=== PATIENT | male | born 1995 | race Hispanic/Latino ===

== ENCOUNTER 2018-02-12 23:50 | Inpatient (IN) | payer MEDICAID, OTHER ==
[2018-02-13 00:52] LABS: BASO # 0.02 K/mm3 (0.0-2.0); BASO % 0.2 % (0.0-3.0); EOS # 0.4 (0.0-0.7); EOS % 4.7 % (1.5-5.0); GRAN # 5.6 (1.4-6.5); GRAN % 61.8 % (50.0-68.0); HEMOGLOBIN 14.4 g/dL (14.0-18.0); LYMPH # 2.2 (1.2-3.4); MEAN CELL VOLUME 85.2 fl (80.0-105.0); MEAN CORPUSCULAR HEMOGLOBIN 29.3 pg (25.0-35.0); MEAN CORPUSCULAR HGB CONC 34.4 g/dl (31.0-37.0); MEAN PLATELET VOLUME 10.4 fl (7.0-11.0); MONO # 0.8 (0.1-0.6); MONO % 9.3 % (1.0-6.0); RBC 4.92 10^6/uL (3.5-6.1); RED CELL DISTRIBUTION WIDTH 13.6 % (11.5-14.5); WHITE BLOOD COUNT 9.1 10^3/ul (4.5-11.0)
[2018-02-13 01:08] LABS: ACETAMINOPHEN < 10.0 ug/ml (10.0-20.0); SALICYLATE < 1 mg/dL (2.0-20.0)
[2018-02-13 01:09] LABS: ALB/GLOB RATIO 1.4 (1.1-1.8); ALBUMIN 4.1 g/dL (3.0-4.8); ALT/SGPT 66 U/L (7-56); AST/SGOT 69 U/L (17-59); BLOOD UREA NITROGEN 20 mg/dL (7-21); CALCIUM 9.3 mg/dL (8.4-10.5); GFR AFRICAN-AMERICAN > 60; GFR NON-AFRICAN AMERICAN > 60
[2018-02-13 01:13] LABS: URINE BILIRUBIN SMALL (NEGATIVE); URINE BLOOD NEGATIVE (NEGATIVE); URINE GLUCOSE (UA) NEGATIVE (NEGATIVE); URINE LEUKOCYTE ESTERASE NEGATIVE Leu/uL (NEGATIVE); URINE PROTEIN 100 mg/dL (<30 mg/dL)
[2018-02-13 01:16] LABS: URINE APPEARANCE CLEAR (CLEAR); URINE COLOR YELLOW (YELLOW)
[2018-02-13 01:26] LABS: URINE EPITHELIAL CELLS 0 - 2 /hpf (0-5); URINE RBC 0 - 2 /hpf (0-2); URINE WBC 0 - 2 /hpf (0-6)
[2018-02-13 01:41] LABS: BARBITURATES, UR NEGATIVE (NEGATIVE)
[2018-02-13 01:42] LABS: BENZODIAZEPINES, UR NEGATIVE (NEGATIVE); OPIATES, UR POSITIVE (NEGATIVE); PHENCYCLIDINE, UR NEGATIVE (NEGATIVE)
--- NOTE | 2018-02-13 04:27 | ED PDOC ---
Arrival/HPI - General Chief Complaint: Psychiatric Evaluation Time Seen by Provider: 02/13/18 00:07 Historian: Patient - History of Present Illness Narrative History of Present Illness (Text): Patient is a 22 year old male who presents to the Emergency department complaining of having suicidal ideation. Patient reports that he has been trying to kill himself with heroin overdose over the past 2 weeks. Patient reports using about 20 bags a day IV. Patient denies homicidal ideation, hallucination, and currently has no physical complaints. Symptom Course: Unchanged, Other Past Medical History - Provider Review Nursing Documentation Reviewed: Yes - Infectious Disease Hx of Infectious Diseases: None - Psychiatric Hx Psychophysiologic Disorder: Yes Hx Depression: Yes Hx Substance Use: Yes Family/Social History - Physician Review Nursing Documentation Reviewed: Yes Family/Social History: No Known Family HX Smoking Status: Smoker Currrent Status Unknown Hx Alcohol Use: Yes Frequency of alcohol use: Few days per week Hx Substance Use: Yes Substance used: Heroin, Coccaine Allergies/Home Meds Allergies/Adverse Reactions: Allergies No Known Allergies Allergy (Verified 02/13/18 00:06) Home Medications: Home Meds Medication Instructions Recorded Confirmed No Known Home Med 02/13/18 02/13/18 Review of Systems - Physician Review All systems were reviewed & negative as marked: Yes - Review of Systems Constitutional: absent: Fevers Neurological: Other (No hallucination) Psychiatric: Suicidal Ideation, Other (No homicidal ideation) Physical Exam Vital Signs Reviewed: Yes Vital Signs Pulse Resp BP Pulse Ox 02/13/18 05:35 63 14 132/78 95 02/13/18 05:07 64 12 96 02/13/18 03:20 71 12 95 02/13/18 01:41 77 14 116/50 L 98 Blood Pressure: Normal Pulse: Regular Respiratory Rate: Normal Appearance: Positive for: Well-Appearing Mental Status: Positive for: Alert and Oriented X 3 - Systems Exam Head: Present: Atraumatic, Normocephalic Pupils: Present: PERRL Extroacular Muscles: Present: EOMI Conjunctiva: Present: Normal Mouth: Present: Moist Mucous Membranes Neck: Present: Normal Range of Motion Respiratory/Chest: Present: Clear to Auscultation, Good Air Exchange. No: Respiratory Distress, Accessory Muscle Use Cardiovascular: Present: Regular Rate and Rhythm, Normal S1, S2. No: Murmurs Abdomen: No: Tenderness, Distention, Peritoneal Signs Back: Present: Normal Inspection Upper Extremity: Present: Normal Inspection. No: Cyanosis, Edema Lower Extremity: Present: Normal Inspection. No: Edema Neurological: Present: GCS=15, CN II-XII Intact, Speech Normal Skin: Present: Warm, Dry, Normal Color. No: Rashes Psychiatric: Present: Alert, Oriented x 3, Normal Insight, Normal Concentration Medical Decision Making ED Course and Treatment: Impression: Patient is a 22 year old male who has suicidal ideation. Plan: --EKG --Chest X-ray --Labs -- Reassess and disposition Progress Notes: EKG shows NSR at 81 BPM with normal axis and intervals. Interpreted by me. Chest X-ray shows no acute processes. Interpreted by me. Patient is medically cleared for psychiatric evaluation. Patient evaluated by psychiatric screener, who recommended psychiatrist to evaluate patient in the morning. - Lab Interpretations Lab Results: 02/13/18 00:35 02/13/18 00:35 Lab Results 02/13/18 00:50: Urine Opiates Screen Positive H, Urine Methadone Screen Negative , Ur Barbiturates Screen Negative, Ur Phencyclidine Scrn Negative, Ur Amphetamines Screen Negative, U Benzodiazepines Scrn Negative, U Oth Cocaine Metabols Positive H, U Cannabinoids Screen Positive H 02/13/18 00:50: Urine Color Yellow, Urine Appearance Clear, Urine pH 6.0, Ur Specific [place] >= 1.030, Urine Protein 100 H, Urine Glucose (UA) Negative, Urine Ketones 15 H, Urine Blood Negative, Urine Nitrate Negative, Urine Bilirubin Small H, Urine Urobilinogen 1.0 H, Ur Leukocyte Esterase Negative, Urine RBC 0 - 2, Urine WBC 0 - 2, Ur Epithelial Cells 0 - 2 02/13/18 00:35: Alcohol, Quantitative < 10 02/13/18 00:35: Salicylates < 1 L, Acetaminophen < 10.0 L 02/13/18 00:35: Sodium 145, Potassium 3.7, Chloride 106, Carbon Dioxide 25, Anion Gap 17, BUN 20, Creatinine 1.2, Est GFR ( Amer) > 60, Est GFR (Non- Af Amer) > 60, Random Glucose 67 L, Calcium 9.3, Magnesium 2.0, Total Bilirubin 0.6, AST 69 H, ALT 66 H, Alkaline Phosphatase 69, Total Protein 7.0, Albumin 4.1 , Globulin 2.9, Albumin/Globulin Ratio 1.4 02/13/18 00:35: WBC 9.1, RBC 4.92, Hgb 14.4, Hct 41.9 L, MCV 85.2, MCH 29.3, MCHC 34.4, RDW 13.6, Plt Count 174, MPV 10.4, Gran % 61.8, Lymph % (Auto) 24.0, [place] % (Auto) 9.3 H, Eos % (Auto) 4.7, Baso % (Auto) 0.2, Gran # 5.60, Lymph # ( Auto) 2.2, [place] # (Auto) 0.8 H, Eos # (Auto) 0.4, Baso # (Auto) 0.02 I have reviewed the lab results: Yes - RAD Interpretation Radiology Orders: 02/13/18 00:08 CHEST PORTABLE [RAD] Stat Sampler Pickup: ED Physician - EKG Interpretation Interpreted by ED Physician: Yes Type: 12 lead EKG - Transfer of Care Patient signed out to Dr:: Ceasar Other: pending psychiatrist evaluation in ED - Scribe Statement The provider has reviewed the documentation as recorded by the Jenniferibjanet Morales Provider Scribe Attestation: All medical record entries made by the Scribe were at my direction and personally dictated by me. I have reviewed the chart and agree that the record accurately reflects my personal performance of the history, physical exam, medical decision making, and the department course for this patient. I have also personally directed, reviewed, and agree with the discharge instructions and disposition. Disposition/Present on Arrival - Present on Arrival Any Indicators Present on Arrival: No History of DVT/PE: No History of Uncontrolled Diabetes: No Urinary Catheter: No History of Decub. Ulcer: No History Surgical Site Infection Following: None - Disposition Have Diagnosis and Disposition been Completed?: Yes Diagnosis: Drug abuse and dependence, Depression Disposition: HOME/ ROUTINE Disposition Time: 07:00 Patient Problems: Current Active Problems Problem Status Onset Drug abuse and dependence Acute Condition: STABLE Discharge Instructions (ExitCare): Drug Abuse and Drug Addiction (DC) Additional Instructions: Thank you for letting us take care of you today. The emergency medical care you received today was directed at your acute symptoms. If you were prescribed any medication, please fill it and take as directed. It may take several days for your symptoms to resolve. Return to the Emergency Department if your symptoms worsen, do not improve, or if you have any other problems. Please contact your doctor or call one of the physicians/clinics you have been referred to that are listed on the Patient Visit Information form that is included in your discharge packet. Bring any paperwork you were given at discharge with you along with any medications you are taking to your follow up visit. Our treatment cannot replace ongoing medical care by a primary care provider (PCP) outside of the emergency department. Thank you for allowing the [facility] team to be part of your care today. Follow up with your primary doctor or our clinic in 2-3 days for re-evaluation and further management. Referrals: [facility] [Outside] - Follow up with primary [facility] [Outside] - Follow up with primary Forms: [employer] (Slovak)
--- NOTE | 2018-02-13 09:02 | RAD ---
HISTORY: r/o infiltrate COMPARISON: No prior. FINDINGS: LUNGS: No active pulmonary disease. PLEURA: No significant pleural effusion identified, no pneumothorax apparent. CARDIOVASCULAR: Normal. OSSEOUS STRUCTURES: No significant abnormalities. VISUALIZED UPPER ABDOMEN: Normal. OTHER FINDINGS: None. IMPRESSION: No active disease.
[2018-02-13 10:43] VITALS: O2SAT 99
[2018-02-13] MEDS ORDERED: Alum-Mag Hydrox-Simethicone Susp (30 mL) PO PRN (14:05)
[2018-02-13] MEDS ORDERED: Magnesium Hydroxide Susp 30 ml UD PO PRN (14:05)
--- NOTE | 2018-02-13 15:02 | CARD ---
APPROVED REPORT EKG Measurement Heart [id number] <Conclusion> Normal sinus rhythm Normal ECG
--- NOTE | 2018-02-13 16:11 | PCM.BM ---
<Raffaele Overton - Last Filed: 02/13/18 16:07> Treatment Plan Problems - Problems identified on initial assessmt Hopelessness & helplessness Date Initiated: 02/13/18 Time Initiated: 13:00 Assessment reference: NA Status: Active Priority: 1 Comment: sad,lack of motivation,suicidal ideation feelings of worthlessness Date Initiated: 02/13/18 (feeling left out by family) Time Initiated: 13:00 Assessment reference: NA Status: Active Priority: 2 Ineffective coping Date Initiated: 02/13/18 (drugs addiction) Time Initiated: 13:00 Assessment reference: NA Status: Active Priority: 3 Treatment assets and liabiliti Patient Assests: ADL independent, physically healthy, negotiates basic needs Patient Liabilities: live alone, poor support system, relationship conflicts, substance abuse - Milieu Protocol Maintain good personal hygiene: every shift Encourage regular showers, every shift Remind patient to perform daily oral care, every shift Assist patient to perform ADL's Conduct patient checks and document Observation sheet: Q15 minutes Maintain personal safety: every shift Educate patient to report safety concerns to staff, every shift Monitor environment for contraband/sharps Medication safety: Monitor for expected outcome, potential side effects: every shift, Assess barriers to learning: every shift, Assess readiness for medication education: every shift Discharge/Continuing Care - Education Needs Education Needs: Patient Medication, Patient Diagnosis/Disease Process, Patient Coping Skills, Patient Anger Management skills, Patient Community resources, Patient Activities of Daily Living, Patient Nutrition, Patient Health Practices/ Safety, Patient Personal Hygiene/Grooming - Discharge Discharge Criteria: Tolerates medication w/o severe side effects, Free of Suicidal thoughts, No longer exhibiting s/s of withdrawal <Suri Costa - Last Filed: 02/14/18 14:24> - Diagnosis (1) Substance induced mood disorder Status: Acute Interventions: 02/14/18 14:25 Psychoeducation Psychopharmacology/adjustment of medications as needed/ monitoring possible side effects Evaluate pt on daily basis Compliance with medications and follow up appointments Suicide and homicide risk assessment and prevention Relapse prevention Reduction of symptoms Improve functional status Family involvement As outpatient: cognitive behavioral therapy (2) Polysubstance abuse Status: Acute Interventions: 02/14/18 14:25 Monitoring withdrawal symptoms Medical detoxification Pharmacotherapy for alcohol/benzos/opioid dependence Maintaining sobriety Relapse prevention Possible rehabilitation Motivational interviewing 12-step programs: AA meetings (3) HIV (human immunodeficiency virus infection) Status: Acute Interventions: 02/14/18 14:25 Pt will be seen by medical team as needed Medications will be confirmed and resumed Additional consultation by specialists as needed Lab work as needed (CBC, CMP, TSH, free T4, UA, Urine test for females as needed) antiretroviral meds will be resumed if needed CXR as needed EKG Physical therapy evaluation as needed <Lilliana Mendez Y - Last Filed: 02/16/18 14:43> Family Contact Family involvement: Famliy/SO not involved
[2018-02-14 08:34] LABS: HDL CHOLESTEROL 43 mg/dL (29-60)
[2018-02-14 08:45] LABS: LDL CHOLESTEROL 76 mg/dL (0-129)
[2018-02-14 08:55] LABS: FREE T4 1.16 ng/dL (0.78-2.19)
[2018-02-14] MEDS ORDERED: Albuterol HFA 90 mcg/actuation (8 g) IH PRN (12:38)
--- NOTE | 2018-02-14 12:42 | CP.PCM.CON ---
<Echo Hauser - Last Filed: 02/14/18 12:39> History of Present Illness - History of Present Illness History of Present Illness: IM consult note for Dr. Efrain Hauser, PGY-1 Pt S & E at bedside at 1140 22M w/PMH sig for recent HIV dx after sharing needle for IVDU not currently on HIV medications consulted for evaluation regarding HIV medication regimen and antiobiotic recommendations. Pt currently with symptoms of opiate withdrawal- nausea, diaphoresis, constipation, chills, headache. Also admits to chest tightness, SOB. Denies emesis, fevers, diarrhea, sore throat. Tolerating a diet, ambulating. No other complaints. PMH: HIV (dx 2 mos ago, given one round of Truvada and Raltegravir from physician at [facility]), Asthma, cavities PSH: Denies All: NKDA SH: Admits to tobacco use - 1ppd x 8 yrs, denies ETOH use, admits to opiate/ heroin & cocaine abuse PMD: Denies Review of Systems - Review of Systems All systems: reviewed and no additional remarkable complaints except - Constitutional Constitutional: Chills, Excessive Sweating, Fever, Headache - EENT Eyes: absent: Change in Vision Nose/Mouth/Throat: absent: Sore Throat - Cardiovascular Cardiovascular: absent: Chest Pain - Respiratory Respiratory: Cough, Chest Congestion. absent: Excessive Mucous Production - Gastrointestinal Gastrointestinal: Constipation, Nausea. absent: Abdominal Pain, Diarrhea, Vomiting - Genitourinary Genitourinary: absent: Change in Urinary Stream - Musculoskeletal Musculoskeletal: absent: Back Pain, Numbness, Tingling - Integumentary Integumentary: absent: Rash - Neurological Neurological: absent: Weakness - Psychiatric Psychiatric: Suicidal Ideation Past Patient History - Infectious Disease Hx of Infectious Diseases: None - Past Social History Smoking Status: Smoker Currrent Status Unknown - CARDIAC Hx Cardiac Disorders: No Hx Hypertension: No - PULMONARY Hx Respiratory Disorders: No Hx Tuberculosis: No - NEUROLOGICAL Hx Neurological Disorder: No HX Cerebrovascular Accident: No Hx Seizures: No - HEENT Hx HEENT Problems: No - RENAL Hx Chronic Kidney Disease: No - ENDOCRINE/METABOLIC Hx Endocrine Disorders: No - HEMATOLOGICAL/ONCOLOGICAL Hx Blood Disorders: No Hx Cancer: No Hx Human Immunodeficiency Virus (HIV): No - INTEGUMENTARY Hx Dermatological Problems: No - MUSCULOSKELETAL/RHEUMATOLOGICAL Hx Musculoskeletal Disorders: No - GASTROINTESTINAL Hx Gastrointestinal Disorders: No - GENITOURINARY/GYNECOLOGICAL Hx Genitourinary Disorders: No Hx Sexually Transmitted Disorders: No - PSYCHIATRIC Hx Psychophysiologic Disorder: No Hx Anxiety: Yes Hx Bipolar Disorder: Yes Hx Depression: Yes Hx Emotional Abuse: No Hx Physical Abuse: No Hx Schizophrenia: No Hx Sexual Abuse: No Hx Substance Use: Yes (heroin and cocaine) - SURGICAL HISTORY Hx Surgeries: No - ANESTHESIA Hx Anesthesia: No Meds Allergies/Adverse Reactions: Allergies Allergy/AdvReac Type Severity Reaction Status Date / Time No Known Allergies Allergy Verified 02/13/18 11:24 - Medications Medications: Current Medications Acetaminophen (Tylenol 325mg Tab) 650 mg PO Q6H PRN PRN Reason: Pain, moderate (4-7) Al Hydrox/Mg Hydrox/Simethicone (Maalox Plus 30 Ml) 30 ml PO DAILY PRN PRN Reason: Indigestion / Heartburn Clonidine HCl (Catapres) 0.1 mg PO Q12 PRN PRN Reason: withdrawals Docusate Sodium (Colace) 100 mg PO DAILY [facility] Haloperidol (Haldol) 5 mg PO Q6 PRN; Protocol PRN Reason: Agitation Haloperidol Lactate (Haldol) 5 mg IM Q6 PRN; Protocol PRN Reason: Agitation Lorazepam (Ativan) 1 mg PO Q6 PRN; Protocol PRN Reason: Agitation Lorazepam (Ativan) 1 mg IM Q6H PRN; Protocol PRN Reason: Agitation Magnesium Hydroxide (Milk Of Magnesia) 30 ml PO DAILY PRN PRN Reason: Constipation Mirtazapine (Remeron) 15 mg PO HS [facility] Multivitamins/Minerals (Therapeutic-M Tab) 1 tab PO 0800 [facility] Nicotine (Nicoderm Cq) 1 patch TD DAILY [facility] Ondansetron HCl (Zofran Odt) 4 mg PO Q8H PRN PRN Reason: Nausea/Vomiting Pantoprazole Sodium (Protonix Ec Tab) 20 mg PO 0600 [facility] Tramadol HCl (Ultram) 50 mg PO TID [facility] Physical Exam - Constitutional Appears: Non-toxic, No Acute Distress - Head Exam Head Exam: ATRAUMATIC, NORMAL INSPECTION, NORMOCEPHALIC - Eye Exam Eye Exam: EOMI, Normal appearance - ENT Exam ENT Exam: Mucous Membranes Moist, Normal Exam, Normal Oropharynx - Neck Exam Neck exam: Positive for: Full Rom, Normal Inspection - Respiratory Exam Respiratory Exam: Clear to Auscultation Bilateral, NORMAL BREATHING PATTERN. absent: Rales, Rhonchi, Wheezes, Respiratory Distress - Cardiovascular Exam Cardiovascular Exam: REGULAR RHYTHM, +S1, +S2 - GI/Abdominal Exam GI & Abdominal Exam: Normal Bowel Sounds, Soft. absent: Distended, Firm, Guarding, Tenderness - Extremities Exam Extremities exam: Positive for: normal inspection - Back Exam Back exam: NORMAL INSPECTION - Neurological Exam Neurological exam: Alert, CN II-XII Intact, Normal Gait, Oriented x3 - Psychiatric Exam Psychiatric exam: Normal Affect, Normal Mood - Skin Skin Exam: Dry, Intact, Normal Color, Warm Additional comments: Tattoo on face by left eye Results - Vital Signs Recent Vital Signs: Last Vital Signs Temp 97.9 F 02/14/18 06:00 Pulse 61 02/14/18 06:00 Resp 16 02/14/18 06:00 BP 109/67 02/14/18 06:00 Pulse Ox 99 02/13/18 10:45 - Labs Result Diagrams: 02/13/18 00:35 02/13/18 00:35 Labs: Laboratory Results - last 24 hr 02/14/18 02/14/18 07:45 07:45 Triglycerides 64 Cholesterol 135 LDL Cholesterol Direct 76 HDL Cholesterol 43 Free T4 1.16 TSH 3rd Generation 0.07 L Assessment & Plan - Assessment and Plan (Free Text) Assessment: 22M w/PMH sig for HIV consulted for HIV medication recommendations & recommendation regarding continuing antibiotic Plan: HIV CXR negative EKG NSR Recommend ID consult for establishing HIV medication regimen, possible ppx ABx therapy Encouraged pt to establish outpatient care with an infectious disease physician Asthma Ventolin PRN Monitor Substance abuse Zofran PRN Colace Already on MagOx Recommend detox program Further mgmt as per psych team GI/DVT ppx Ambulate Protonix Thank you for this consult, please re-consult as needed DW attending Analisa, PGY-1 - Date & Time Date: 02/14/18 Time: 11:40 <Alexander Parsons - Last Filed: 02/14/18 15:15> Meds - Medications Medications: Current Medications Acetaminophen (Tylenol 325mg Tab) 650 mg PO Q6H PRN PRN Reason: Pain, moderate (4-7) Al Hydrox/Mg Hydrox/Simethicone (Maalox Plus 30 Ml) 30 ml PO DAILY PRN PRN Reason: Indigestion / Heartburn Albuterol (Ventolin Hfa 90 Mcg/Actuation (8 G)) 1 puff IH [id number] PRN PRN Reason: Wheezing Clonidine HCl (Catapres) 0.1 mg PO Q12 PRN PRN Reason: withdrawals Docusate Sodium (Colace) 100 mg PO DAILY [facility] Last Admin: 02/14/18 12:51 Dose: 100 mg Haloperidol (Haldol) 5 mg PO Q6 PRN; Protocol PRN Reason: Agitation Haloperidol Lactate (Haldol) 5 mg IM Q6 PRN; Protocol PRN Reason: Agitation Lorazepam (Ativan) 1 mg PO Q6 PRN; Protocol PRN Reason: Agitation Lorazepam (Ativan) 1 mg IM Q6H PRN; Protocol PRN Reason: Agitation Magnesium Hydroxide (Milk Of Magnesia) 30 ml PO DAILY PRN PRN Reason: Constipation Mirtazapine (Remeron) 15 mg PO HS [facility] Multivitamins/Minerals (Therapeutic-M Tab) 1 tab PO 0800 [facility] Nicotine (Nicoderm Cq) 1 patch TD DAILY [facility] Ondansetron HCl (Zofran Odt) 4 mg PO Q8H PRN PRN Reason: Nausea/Vomiting Pantoprazole Sodium (Protonix Ec Tab) 20 mg PO 0600 [facility] Tramadol HCl (Ultram) 50 mg PO TID [facility] Last Admin: 02/14/18 12:51 Dose: 50 mg Results - Vital Signs Recent Vital Signs: Last Vital Signs Temp 97.9 F 02/14/18 06:00 Pulse 61 02/14/18 06:00 Resp 16 02/14/18 06:00 BP 109/67 02/14/18 06:00 Pulse Ox 99 02/13/18 10:45 - Labs Result Diagrams: 02/13/18 00:35 02/13/18 00:35 Labs: Laboratory Results - last 24 hr 02/14/18 02/14/18 07:45 07:45 Triglycerides 64 Cholesterol 135 LDL Cholesterol Direct 76 HDL Cholesterol 43 Free T4 1.16 TSH 3rd Generation 0.07 L Attending/Attestation - Attestation I have personally seen and examined this patient.: Yes I have fully participated in the care of the patient.: Yes I have reviewed all pertinent clinical information: Yes Notes (Text): 02/14/18 15:08 attending note; Patient seen and examined with resident in psych floor. Patient is a 22M with past medical history of HIV x 2 months ago after sharing needle for IVDU not currently on HIV medications consulted for evaluation regarding HIV medication regimen. as per patient he was recently diagnosed. Denies any history of PCP or any opportunistic infection. Not on any medication. Does not know the CD4 count or viral load. Did not establish any PMD or infectious disease specialist as outpatient. ID evaluation recommended. mildly elevated LFTs; hepatitis profile ordered. History of active cocaine and heroin abuse; in mild withdrawal. vitals stable. Tolerating diet. Case discussed with psychiatrist in detail. Treatment plan per psychiatrist. Outpatient methadone program recommended. Outpatient rehabilitation recommended. active smoking; smoking cessation is strongly advised. Currently on NicoDerm patch. Patient is homeless. matrix worker evaluation recommended. Patient is medically stable. Please reconsult as needed.
--- NOTE | 2018-02-14 14:24 | PCM.PSYCH ---
Initial Psychiatric Evaluation - Initial Psychiatric Evaluation Type of Admission: Voluntary Legal Status: Capacity (Patient had a capacity to sign consent for treatment) Chief Complaint (in patient's own words): "I don't feel well, withdrawing" Patient's Reaction to Hospitalization: patient was admitted for evaluation and stabilization of possible depressive symptoms as well as possible suicidal ideation, off note patient was making such statements being under the influence of opioids as well as possible withdrawal symptoms. History of Present Illness and Precipitating Events: shortly patient is 22 year old male, history of polysubstance abuse and dependence, history of noncompliance with the medications and follow-up appointments, history of incarceration, patient was released from nursing home October 2017, patient has 1 psychiatric admission in [facility] about 2 weeks ago, patient was signed AGAINST MEDICAL ADVICE after 4 days of hospitalization, since then patient was noncompliant with the medications, was using IV heroine about 20 bags a day, as a result patient had a lot of social issues, lost his job, patient is homeless, patient came to the hospital looking for help for his addiction problems as well as patient reported to have suicidal ideation in the emergency room, patient was cleared by psychiatrist Dr. Corcoran who was social media content manager yesterday but patient refused to leave the hospital saying that he is suicidal, patient had [id number] evaluation with Dr. Bullock, patient signed consent for treatment, patient required to be observed, med management, stabilization. treatment plan was discussed by Dr. Goodwin into details, patient agreed to have symptomatic treatment for his opioid withdrawals. pt was seen in his room because pt refused to dissipate and treatment team meeting. Patient presented to have poor personal hygiene, multiple tattoos, poor eye contact, speech was underproductive, patient appears to be mildly irritable. Patient said after he was released from nursing home in October 2017 "initially things were going well, but I relapse on drugs". 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 patient denies drinking alcohol, smoking cigarettes about 1-1/2 packs a day, counseling provided, nicotine patch offered. Patient reported that he was feeling depressed and hopeless, patient reported that he had thoughts of killing himself by overdosing on drugs, patient reported last suicidal attempt was about 2 weeks ago after what patient was started admitted at [facility] from. She was discharged AGAINST MEDICAL ADVICE. Patient reported that that was only one suicidal attempt she had in his lifetime. Patient contracted for safety, denied any intent or plan to kill himself at present moment body reported feeling hopeless. Patient denied hearing voices denied seeing things denied paranoid ideations, patient does not appear to be psychotic. Patient reported that he sleeps a lot, reported his appetite is poor. patient denied any manic symptoms in the past, none elicited. Past psychiatric history: This writer producer mentioned above patient had 1 psychiatric admission in [place] status post possible suicidal attempt by overdose on drugs , patient was signed AGAINST MEDICAL ADVICE, pt was on Remeron and wellbutrin. family history: Unknown Medical history: Patient reported that he is in good physical health but as per record patient is HIV-positive and not taking any medications, as per [place] record pt was on antiretroviral meds as well as zithromax. discussed with medical team, consult appreciated. 02/13/18 00:35 02/13/18 00:35 Lab Results 02/14/18 07:45: Triglycerides 64, Cholesterol 135, LDL Cholesterol Direct 76, HDL Cholesterol 43 02/14/18 07:45: Free T4 1.16, TSH 3rd Generation 0.07 L 02/13/18 00:50: Urine Opiates Screen Positive H, Urine Methadone Screen Negative , Ur Barbiturates Screen Negative, Ur Phencyclidine Scrn Negative, Ur Amphetamines Screen Negative, U Benzodiazepines Scrn Negative, U Oth Cocaine Metabols Positive H, U Cannabinoids Screen Positive H 02/13/18 00:50: Urine Color Yellow, Urine Appearance Clear, Urine pH 6.0, Ur Specific [place] >= 1.030, Urine Protein 100 H, Urine Glucose (UA) Negative, Urine Ketones 15 H, Urine Blood Negative, Urine Nitrate Negative, Urine Bilirubin Small H, Urine Urobilinogen 1.0 H, Ur Leukocyte Esterase Negative, Urine RBC 0 - 2, Urine WBC 0 - 2, Ur Epithelial Cells 0 - 2 02/13/18 00:35: Alcohol, Quantitative < 10 02/13/18 00:35: Salicylates < 1 L, Acetaminophen < 10.0 L 02/13/18 00:35: Sodium 145, Potassium 3.7, Chloride 106, Carbon Dioxide 25, Anion Gap 17, BUN 20, Creatinine 1.2, Est GFR ( Amer) > 60, Est GFR (Non- Af Amer) > 60, Random Glucose 67 L, Calcium 9.3, Magnesium 2.0, Total Bilirubin 0.6, AST 69 H, ALT 66 H, Alkaline Phosphatase 69, Total Protein 7.0, Albumin 4.1 , Globulin 2.9, Albumin/Globulin Ratio 1.4 02/13/18 00:35: WBC 9.1, RBC 4.92, Hgb 14.4, Hct 41.9 L, MCV 85.2, MCH 29.3, MCHC 34.4, RDW 13.6, Plt Count 174, MPV 10.4, Gran % 61.8, Lymph % (Auto) 24.0, Stan[place] % (Auto) 9.3 H, Eos % (Auto) 4.7, Baso % (Auto) 0.2, Gran # 5.60, Lymph # ( Auto) 2.2, Stanly # (Auto) 0.8 H, Eos # (Auto) 0.4, Baso # (Auto) 0.02 Vital Signs Temp Pulse Resp BP Pulse Ox 02/14/18 06:00 97.9 F 61 16 109/67 02/13/18 16:00 60 112/61 02/13/18 11:33 20 02/13/18 10:45 98 F 66 20 121/66 99 02/13/18 08:00 64 18 119/77 99 02/13/18 07:00 61 16 98 02/13/18 05:35 63 14 132/78 95 02/13/18 05:07 64 12 96 02/13/18 03:20 71 12 95 02/13/18 01:41 77 14 116/50 L 98 Current Medications: Active Medications Generic Name Dose Route Start Last Admin Trade Name Freq PRN Reason Stop Dose Admin Acetaminophen 650 mg 02/13/18 14:03 Tylenol 325mg Tab PO Q6H PRN Pain, moderate (4-7) Al Hydrox/Mg Hydrox/Simethicone 30 ml 02/13/18 14:05 Maalox Plus 30 Ml PO DAILY PRN Indigestion / Heartburn Albuterol 1 puff 02/14/18 12:38 Ventolin Hfa 90 Mcg/Actuation (8 G) IH [id number] PRN Wheezing Clonidine HCl 0.1 mg 02/13/18 14:06 Catapres PO Q12 PRN withdrawals Docusate Sodium 100 mg 02/14/18 12:45 02/14/18 12:51 Colace PO 100 mg DAILY MARK ANTHONY Administration Haloperidol 5 mg 02/13/18 14:12 Haldol PO Q6 PRN Agitation Protocol Haloperidol Lactate 5 mg 02/13/18 14:15 Haldol IM Q6 PRN Agitation Protocol Lorazepam 1 mg 02/13/18 14:13 Ativan PO Q6 PRN Agitation Protocol Lorazepam 1 mg 02/13/18 14:17 Ativan IM Q6H PRN Agitation Protocol Magnesium Hydroxide 30 ml 02/13/18 14:05 Milk Of Magnesia PO DAILY PRN Constipation Mirtazapine 15 mg 02/14/18 22:00 Remeron PO HS MARK ANTHONY Multivitamins/Minerals 1 tab 02/15/18 08:00 Therapeutic-M Tab PO 0800 MARK ANTHONY Nicotine 1 patch 02/15/18 08:00 Nicoderm Cq TD DAILY MARK ANTHONY Ondansetron HCl 4 mg 02/14/18 10:21 Zofran Odt PO Q8H PRN Nausea/Vomiting Pantoprazole Sodium 20 mg 02/15/18 06:00 Protonix Ec Tab PO 0600 MARK ANTHONY Tramadol HCl 50 mg 02/14/18 13:00 02/14/18 12:51 Ultram PO 50 mg TID MARK ANTHONY Administration Past Psychiatric History - Past Psychiatric History Previous Treatment History: Inpatient Prior Professional Help: see HPI Prior Psychiatric Treatment: see HPI At what hospital: see HPI Duration: see HPI Nature of Treatment: see HPI Explanation of prior treatment: see HPI History of Abuse: see HPI History of ETOH/Drug Use: see HPI History of Family Illness: see HPI Pertinent Medical Hx (Current Medical&Sleep Prob, Allergies): Allergies Allergy/AdvReac Type Severity Reaction Status Date / Time No Known Allergies Allergy Verified 02/13/18 11:24 No Known Home Med 02/13/18 Review of Systems - Review of Systems Systems not reviewed;Unavailable: Acuity of Condition - EENT Eyes: As Per HPI Ears: As Per HPI Nose/Mouth/Throat: As Per HPI - Cardiovascular Cardiovascular: As Per HPI - Respiratory Respiratory: As Per HPI - Gastrointestinal Gastrointestinal: As Per HPI - Genitourinary Genitourinary: As Per HPI - Reproductive: Male Reproductive:Male: As Per HPI - Musculoskeletal Musculoskeletal: As Par HPI - Integumentary Integumentary: As Per HPI - Neurological Neurological: As Per HPI - Psychiatric Psychiatric: As Per HPI - Endocrine Endocrine: As Per HPI - Hematologic/Lymphatic Hematologic: As Per HPI Mental Status Examination - Personal Presentation Personal Presentation: Looks stated age - Affect Affect: Flat - Motor Activity Motor Activity: Calm - Reliability in Providing Information Reliability in Providing Information: Poor, due to altered mood - Speech Speech: Organized (but concrete) - Mood Mood: Depressed - Formal Thought Process Formal Thought Process: No Impairment - Obsessions/Compulsions Obsessions: None Compulsions: None - Cognitive Functions Orientation: Person, Place, Situation Attention/Concentration: Easily distracted Abstract Thinking: Mikana Estimate of Intelligence: Below average Judgement: Intact, as evidence by: Insight regarding need for hospitalization - Risk Risk: Withdrawal, Diminished functioning - Strength & Assets Inventory Strength & Assets Inventory: Cooperative - Limitations Limitations: Other (noncompliance with meds and follow ups, heavy drug use, HIV status) DSM 5 DX - DSM 5 DSM 5 Diagnosis: r/o substance induced mood disorder r/o mdd polysubstance abuse and dependence - Recommended/Plan of Treatment Treatment Recommendations and Plan of Treatment: Milieu/structure/supportive therapy Medical consult appreciated, see medical team note for more detailed info SW consultation for discharge plan and social issues, possible inpatient rehab Med management remeron 15milligram at the nighttime for depression and insomnia Symptomatic treatment for possible opioid withdrawals including clonidine, Zofran, tramadol Neurontin 300 mg 3 times a day patient submitted to 48 hour notice requesting discharge, we will assess patient further in case patient requires [facility] screening will definitely do so Family involvement Follow up on labs Will monitor closely Pt was educated about risk/benefits and alternatives of medications, coping strategies (safety plan, suicide prevention), relapse prevention, importance of follow up with psychiatrist and therapist, stay away from drugs/alcohol/smoking Projected ELOS: 7 days Prognosis: guarded Discharge Plan and Discharge Criteria: Pt will be not depressed or manic, will be more hopeful, will be not psychotic or anxious, will be not having thoughts of harming self or others, will be tolerating medications well, will not have major side effects, will be able to function, will not pose threat to self or others. - Smoking Cessation Smoking Cessation Initiated: Yes
[2018-02-15] MEDS: Pantoprazole 20 mg EC Tab PO SCH (06:00)
[2018-02-15] MEDS: Multivitamin With Minerals Tab PO SCH (09:19)
[2018-02-15 12:05] LABS: HEPATITIS B SURFACE AG Negative (NEGATIVE)
[2018-02-15 12:11] LABS: HEPATITIS A IGM NEGATIVE (NEGATIVE); HEPATITIS B CORE AB NEGATIVE (NEGATIVE)
[2018-02-15 15:05] LABS: HEPATITIS C ANTIBODY REACTIVE (NEGATIVE)
--- NOTE | 2018-02-15 16:12 | PCM.PYCHPN ---
Psychiatric Progress Note - Psychiatric Progress Note Patient seen today, length of contact: 30min Patient Chief Complaint: "I wanted to stay because I want to get help" Problems Identified/Issues Discussed: Suicide/ homicide prevention, past psychiatric h/o, current psychiatric symptoms , medical problems, risk/benefits and alternatives of medications, medications compliance, coping strategies, substance abuse h/o, relapse prevention, importance of follow up with psychiatrist and therapist, discharge plan. Medical Problems: see HPI Diagnostic Results: 02/13/18 00:35 02/13/18 00:35 Lab Results 02/15/18 07:50: Hepatitis A IgM Ab Negative, Hep Bs Antigen Negative, Hep B Core IgM Ab Negative, Hepatitis C Antibody Reactive 02/14/18 07:45: Triglycerides 64, Cholesterol 135, LDL Cholesterol Direct 76, HDL Cholesterol 43 02/14/18 07:45: Free T4 1.16, TSH 3rd Generation 0.07 L 02/14/18 07:45: RPR Nonreactive 02/13/18 00:50: Urine Opiates Screen Positive H, Urine Methadone Screen Negative , Ur Barbiturates Screen Negative, Ur Phencyclidine Scrn Negative, Ur Amphetamines Screen Negative, U Benzodiazepines Scrn Negative, U Oth Cocaine Metabols Positive H, U Cannabinoids Screen Positive H 02/13/18 00:50: Urine Color Yellow, Urine Appearance Clear, Urine pH 6.0, Ur Specific [place] >= 1.030, Urine Protein 100 H, Urine Glucose (UA) Negative, Urine Ketones 15 H, Urine Blood Negative, Urine Nitrate Negative, Urine Bilirubin Small H, Urine Urobilinogen 1.0 H, Ur Leukocyte Esterase Negative, Urine RBC 0 - 2, Urine WBC 0 - 2, Ur Epithelial Cells 0 - 2 02/13/18 00:35: Alcohol, Quantitative < 10 02/13/18 00:35: Salicylates < 1 L, Acetaminophen < 10.0 L 02/13/18 00:35: Sodium 145, Potassium 3.7, Chloride 106, Carbon Dioxide 25, Anion Gap 17, BUN 20, Creatinine 1.2, Est GFR ( Amer) > 60, Est GFR (Non- Af Amer) > 60, Random Glucose 67 L, Calcium 9.3, Magnesium 2.0, Total Bilirubin 0.6, AST 69 H, ALT 66 H, Alkaline Phosphatase 69, Total Protein 7.0, Albumin 4.1 , Globulin 2.9, Albumin/Globulin Ratio 1.4 02/13/18 00:35: WBC 9.1, RBC 4.92, Hgb 14.4, Hct 41.9 L, MCV 85.2, MCH 29.3, MCHC 34.4, RDW 13.6, Plt Count 174, MPV 10.4, Gran % 61.8, Lymph % (Auto) 24.0, [place] % (Auto) 9.3 H, Eos % (Auto) 4.7, Baso % (Auto) 0.2, Gran # 5.60, Lymph # ( Auto) 2.2, Mclennan # (Auto) 0.8 H, Eos # (Auto) 0.4, Baso # (Auto) 0.02 Vital Signs Temp Pulse Resp BP Pulse Ox 02/15/18 07:16 98.0 F 60 20 114/76 02/14/18 16:00 70 112/62 02/14/18 15:19 80 137/90 02/14/18 06:00 97.9 F 61 16 109/67 02/13/18 16:00 60 112/61 02/13/18 11:33 20 02/13/18 10:45 98 F 66 20 121/66 99 02/13/18 08:00 64 18 119/77 99 02/13/18 07:00 61 16 98 02/13/18 05:35 63 14 132/78 95 02/13/18 05:07 64 12 96 02/13/18 03:20 71 12 95 02/13/18 01:41 77 14 116/50 L 98 DSM 5 Symptoms Update: shortly patient is 22 year old male, history of polysubstance abuse and dependence, history of noncompliance with the medications and follow-up appointments, history of incarceration, patient was released from [facility] October 2017, patient has 1 psychiatric admission in [facility] about 2 weeks ago, patient was signed AGAINST MEDICAL ADVICE after 4 days of hospitalization, since then patient was noncompliant with the medications, was using IV heroine about 20 bags a day, as a result patient had a lot of social issues, lost his job, patient is homeless, patient came to the hospital looking for help for his addiction problems as well as patient reported to have suicidal ideation in the emergency room, patient was cleared by psychiatrist Dr. Corcoran who was refractive surgeon yesterday but patient refused to leave the hospital saying that he is suicidal, patient had [id number] evaluation with Dr. Bullock, patient signed consent for treatment, patient required to be observed, med management, stabilization. treatment plan was discussed by Dr. Goodwin into details, patient agreed to have symptomatic treatment for his opioid withdrawals. pt was seen in his room because pt refused to te interviewed at the treatment team. Patient presented to have poor personal hygiene, multiple tattoos, poor eye contact, speech was underproductive, patient appears to be mildly irritable. patient submitted 48 hour notice yesterday, but changed his mind and decided to stay in the hospital in order to complete his treatment. Plan this parts data writer asked what made him to change his mind patient reported, "I wanted to get maximum help from this admission" the main concern for this patient iswithdrawal from [facility] and, patient was advised to take symptomatic treatment, patient verbalized understanding. Patient still appeared to be irritable, annoyed, depressed, as per staff patient is self isolating in his room, do not participate in therapy. At the same time no agitation, no aggression, no disrespectful behavior. Patient tolerates medications well so far, no side effects, aims 0, no EPS. Impression: DSM 5 Diagnosis: r/o substance induced mood disorder r/o mdd polysubstance abuse and dependence Medication Change: Yes Medical Record Reviewed: Yes Consults ordered or reviewed: pt was seen by medical and ID teams Mental Status Examination - Cognitive Function Orientation: Person, Place, Situation Attention: Poor Concentration: Poor Association: WNL Fund of Knowledge: Poor - Mood Mood: Depressed - Affect Affect: Flat - Formal Thought Process Formal Thought Process: No Impairment - Suicidal Ideation Suicidal Ideation: No - Homicidal Ideation Homicidal Ideation: No Goal/Treatment Plan - Goal/Treatment Plan Need for Continued Stay: Remain at risks for inpatient hospitalization, Severe depression anxiety, Discharge may exacerbated symptoms, Failed transitioning, Severe functional impairment Progress Toward Problem(s) and Goals/Treatment Plan: Milieu/structure/supportive therapy Medical consult appreciated, see medical team note for more detailed info SW consultation for discharge plan and social issues, possible inpatient rehab Med management remeron 15milligram at the nighttime for depression and insomnia Symptomatic treatment for possible opioid withdrawals including clonidine, Zofran, tramadol Neurontin 300 mg 3 times a day patient submitted to 48 hour notice requesting discharge, we will assess patient further in case patient requires [facility] screening will definitely do so Family involvement Follow up on labs Will monitor closely Pt was educated about risk/benefits and alternatives of medications, coping strategies (safety plan, suicide prevention), relapse prevention, importance of follow up with psychiatrist and therapist, stay away from drugs/alcohol/smoking Estimated Date of D/C: 02/21/18
--- NOTE | 2018-02-15 21:49 | CON ---
DATE: 02/15/2018 LOCATION: The patient is seen earlier this morning in the psychiatric floor. CHIEF COMPLAINT: Positive HIV for several years. HISTORY OF PRESENT ILLNESS: This is a 22-year-old male with history of depression, bipolar, suicidal, heroin use intravenously, cocaine use, who was diagnosed with HIV at the [facility], was started on HIV medication of Isentress and Truvada. He took the medications only for approximately a week and he states he is homeless and getting his HIV medications is difficulty and compliance is difficult due to him being homeless. He does not know what his viral load is. He does not know what his T cells are. He is an active intravenous drug abuser. PAST MEDICAL HISTORY: Significant for depression, suicidal ideation, active intravenous heroin use and cocaine use and the patient is also with bipolar. PAST SURGICAL HISTORY: Noncontributory. ALLERGIES: HE HAS NO KNOWN ALLERGIES. MEDICATIONS AT HOME: Would include Isentress and Truvada, but not compliant. SOCIAL HISTORY: No recent travel. His last intravenous drug use was a few weeks ago. PHYSICAL EXAMINATION: VITAL SIGNS: Temperature is 98, blood pressure is 137/80, respiratory rate of 18, heart rate of 61. HEENT: Examination of HEENT is unremarkable. NECK: Supple. LUNGS: Have decreased breath sounds. HEART: Normal S1 and S2. ABDOMEN: Soft, nontender. No rebound or guarding. LABORATORY DATA: Laboratory examination reveals a white count of 9.1, hemoglobin of 14, platelets are noted to be at 174 and differential is reviewed with a 61% granulocytosis, 25% lymphocytosis, no bandemia. Chemistries revealed the LFTs are elevated and AST of 69, ALT of 66 with BUN of 20, creatinine of 1.2. The urinalysis reveals the patient does have significant proteinuria of 100 with urine ketones of 15 and 0-2 wbc's, 0-2 rbc's, no epithelial cells with negative glucose in the urine and negative blood, negative nitrites with specific gravity of 1.030. The patient's toxicology reveals a urine opiate screen is positive and cocaine metabolites are positive and cannabinoids are positive and hepatitis profile reveals hepatitis A is negative, B is negative. Hepatitis C is pending. RPR is negative. Microbiology is pending. The patient has a chest x-ray, which is negative. ASSESSMENT AND PLAN: This is a 22-year-old male, positive human immunodeficiency virus, history of depression, bipolar, suicidal, active intravenous drug abuser, heroin and cocaine, now in the psychiatric floor because of suicidal ideation. #1 is positive human immunodeficiency virus in the phase of homelessness and once the social issues have been resolved, the patient may resume Isentress and Truvada. I have advised him to come and see me in the human immunodeficiency virus clinic in [place] if he wishes so. We will order human immunodeficiency virus PCR and T cells and we will make further recommendations. Joseph Mantilla MD
[2018-02-16] MEDS: Pantoprazole 20 mg EC Tab PO SCH (06:27)
[2018-02-16 07:14] VITALS: BP 113/66; PULSE 72; RESP 16; TEMP 97.8
[2018-02-16] MEDS: Multivitamin With Minerals Tab PO SCH (08:43)
[2018-02-16 12:29] LABS: % CD4 (T HELPER CELL) 40 Percent (30-61); % CD8 (SUPPRESSOR T CELL) 30 Percent (12-42); ABSOLUTE CD4 CELLS 693 Cells/mcL (490-1740); ABSOLUTE CD8 CELLS 511 Cells/mcL (180-1170); ABSOLUTE LYMPHOCYTES 1718 Cells/mcL (850-3900); HELPER/SUPPRESSOR RATIO 1.36 Ratio (0.86-5.00)
--- NOTE | 2018-02-16 15:20 | PCM.PYCHDC ---
Mental Status Examination - Mental Status Examination Orientation: Person, Place, Situation, Time Memory: Intact Mood: Neutral Affect: Constricted Speech: Appropriate Attention: WNL Concentration: WNL Association: WNL Fund of Knowledge: Poor (baseline) Formal Thought Process: No Impairment Description of patient's judgement and insight: limited insight into his opioid addiction but fair insight into his problems and social situation Psychotic Thoughts and Behaviors: Pt denied v/a/t hallucinations, denied paranoid ideations, pt does not appear to be psychotic, and thought process is goal directed. Suicidal Ideation: No Current Homicidal Ideation?: No Plan: pt adamantly denied thoughts of harming self or others denied intent or plan. Discharge Summary - Discharge Note Reason for Hospitalization: patient was admitted for evaluation and stabilization of possible depressive symptoms as well as possible suicidal ideation, off note patient was making such statements being under the influence of opioids as well as possible withdrawal symptoms. Psychiatric History (includes Medical, Family, Personal Hx): see HPI Laboratory Data: Abnormal Lab Results 02/15/18 07:50 Absolute Lymphs (Flow) 1718 % CD4 Cells 40 Absolute CD4 Count 693 T-Help/Suppress Ratio 1.36 % CD8 Cells 30 Absolute CD8 Count 511 Consultations:: List each consultation separately and include: 1. Reason for request. 2. Findings. 3. Follow-up Consultations: pt was seen by medical and ID teams see notes for more detailed information Summary of Hospital Course include:: 1. Description of specific treatment plan utilized for patients during their course of treatmen. 2. Summarize the time- course for resolution of acute symptoms and/or regressed behaviors. 3. Describe issues identified and worked on during hospitalization. 4. Describe medication utilized. 5. Describe medical problems identified and treated. 6. Reassessment of suicide risk Summary of Hospital Course: shortly patient is 22 year old male, history of polysubstance abuse and dependence, history of noncompliance with the medications and follow-up appointments, history of incarceration, patient was released [facility], patient has 1 psychiatric admission in [facility] about 2 weeks ago, patient was signed AGAINST MEDICAL ADVICE after 4 days of hospitalization, since then patient was noncompliant with the medications, was using IV heroine about 20 bags a day, as a result patient had a lot of social issues, lost his job, patient is homeless, patient came to the hospital looking for help for his addiction problems as well as patient reported to have suicidal ideation in the emergency room, patient was cleared by psychiatrist Dr. Corcoran who was application lead yesterday but patient refused to leave the hospital saying that he is suicidal, patient had [id number] evaluation with Dr. Bullock, patient signed consent for treatment, patient required to be observed, med management, stabilization. treatment plan was discussed by Dr. Bullock in details , patient agreed to have symptomatic treatment for his opioid withdrawals. initially pt was seen in his room because pt refused to dissipate and treatment team meeting. Patient presented to have poor personal hygiene, multiple tattoos, poor eye contact, speech was underproductive, patient appears to be mildly irritable. Patient said after he was released from [facility] in October 2017 "initially things were going well, but I relapse on drugs". 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 patient denies drinking alcohol, smoking cigarettes about 1-1/2 packs a day, counseling provided, nicotine patch offered. Patient reported that he was feeling depressed and hopeless, patient reported that he had thoughts of killing himself by overdosing on drugs, patient reported last suicidal attempt was about 2 weeks ago after what patient was started admitted at [facility] from. She was discharged AGAINST MEDICAL ADVICE. Patient reported that that was only one suicidal attempt she had in his lifetime. Patient contracted for safety, denied any intent or plan to kill himself at present moment body reported feeling hopeless. Patient denied hearing voices denied seeing things denied paranoid ideations, patient does not appear to be psychotic. Patient reported that he sleeps a lot, reported his appetite is poor. patient denied any manic symptoms in the past, none elicited. 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 family history: Unknown Medical history: Patient reported that he is in good physical health but as per record patient is HIV-positive and not taking any medications, as per [facility] record pt was on antiretroviral meds as well as zithromax. discussed with medical team, consult appreciated. 02/13/18 00:35 02/13/18 00:35 Lab Results 02/14/18 07:45: Triglycerides 64, Cholesterol 135, LDL Cholesterol Direct 76, HDL Cholesterol 43 02/14/18 07:45: Free T4 1.16, TSH 3rd Generation 0.07 L 02/13/18 00:50: Urine Opiates Screen Positive H, Urine Methadone Screen Negative , Ur Barbiturates Screen Negative, Ur Phencyclidine Scrn Negative, Ur Amphetamines Screen Negative, U Benzodiazepines Scrn Negative, U Oth Cocaine Metabols Positive H, U Cannabinoids Screen Positive H 02/13/18 00:50: Urine Color Yellow, Urine Appearance Clear, Urine pH 6.0, Ur Specific [place] >= 1.030, Urine Protein 100 H, Urine Glucose (UA) Negative, Urine Ketones 15 H, Urine Blood Negative, Urine Nitrate Negative, Urine Bilirubin Small H, Urine Urobilinogen 1.0 H, Ur Leukocyte Esterase Negative, Urine RBC 0 - 2, Urine WBC 0 - 2, Ur Epithelial Cells 0 - 2 02/13/18 00:35: Alcohol, Quantitative < 10 02/13/18 00:35: Salicylates < 1 L, Acetaminophen < 10.0 L 02/13/18 00:35: Sodium 145, Potassium 3.7, Chloride 106, Carbon Dioxide 25, Anion Gap 17, BUN 20, Creatinine 1.2, Est GFR ( Amer) > 60, Est GFR (Non- Af Amer) > 60, Random Glucose 67 L, Calcium 9.3, Magnesium 2.0, Total Bilirubin 0.6, AST 69 H, ALT 66 H, Alkaline Phosphatase 69, Total Protein 7.0, Albumin 4.1 , Globulin 2.9, Albumin/Globulin Ratio 1.4 02/13/18 00:35: WBC 9.1, RBC 4.92, Hgb 14.4, Hct 41.9 L, MCV 85.2, MCH 29.3, MCHC 34.4, RDW 13.6, Plt Count 174, MPV 10.4, Gran % 61.8, Lymph % (Auto) 24.0, [place] % (Auto) 9.3 H, Eos % (Auto) 4.7, Baso % (Auto) 0.2, Gran # 5.60, Lymph # ( Auto) 2.2, [place] # (Auto) 0.8 H, Eos # (Auto) 0.4, Baso # (Auto) 0.02 Vital Signs Temp Pulse Resp BP Pulse Ox 02/14/18 06:00 97.9 F 61 16 109/67 02/13/18 16:00 60 112/61 02/13/18 11:33 20 02/13/18 10:45 98 F 66 20 121/66 99 02/13/18 08:00 64 18 119/77 99 02/13/18 07:00 61 16 98 02/13/18 05:35 63 14 132/78 95 02/13/18 05:07 64 12 96 02/13/18 03:20 71 12 95 02/13/18 01:41 77 14 116/50 L 98 during this hospitalization pt was not participating in tx pt was staying in his room most of the times pt submitted 48hr notice twice, once rescinded it, second was today. pt said he is feeling 'better, I am not withdrawing, I am not suicidal, I want to go to the suboxone clinic, my friend is going to help me financially", pt said that his friend also found him a job. during this hospitalization pt was NOT agitated or aggressive. pt does not meet a criteria for involuntary commitment will be d/c AMA. At the time of the discharge pt denied been depressed, denied thoughts of harming self or others, denied psychotic symptoms, and pt does not appeared to be psychotic, denied been anxious, pt is not in imminent danger to self or others, will be following up at suboxone clinic of his choice, pt is able to arrange his own aftercare plan. In case pt will need to obtain results of studies pending at discharge pt was provided with contact information of Psychiatric Inpatient unit [phone] as well as Medical Record Department [phone]. Counseling about smoking and alcohol cessation provided AA meetings as well as smoking cessation treatment program information was provided by the pt was not provided with any prescriptions Pt was educated about safety plan in case of worsening of symptoms or in case of suicidal or homicidal ideation call 911 or go to the nearest ER, also was educated to take meds as prescribed and stay away from drugs, pt verbalized understanding. - Diagnosis (1) Substance induced mood disorder Current Visit: Yes Status: Chronic Priority: Medium (2) Polysubstance abuse Current Visit: Yes Status: Chronic Priority: High (3) HIV (human immunodeficiency virus infection) Current Visit: Yes Status: Chronic - Final Diagnosis (DSM 5) Condition upon Discharge: STABLE Disposition: AGAINST MEDICAL ADVICE Follow-up Treatment Plan: In case pt will need to obtain results of studies pending at discharge pt was provided with contact information of Psychiatric Inpatient unit [phone] as well as Medical Record Department [phone]. Counseling about smoking and alcohol cessation provided AA meetings as well as smoking cessation treatment program information was provided by the pt was not provided with any prescriptions Pt was educated about safety plan in case of worsening of symptoms or in case of suicidal or homicidal ideation call 911 or go to the nearest ER, also was educated to take meds as prescribed and stay away from drugs, pt verbalized understanding. - Smoking Cessation Smoking Cessation Medication prescribed: No Reason for not providing: pt is not interested - Antipsychotic Medications Pt discharged on 2 or more routine antipsychotic medications: No
== END 2018-02-16 16:13 | disposition left against medical advice (07) | DRG 894 ==
LOC: ED 23:50 → ERH 02-13 04:38 → UNDOADMIN 02-13 04:38 → ERH 02-13 08:38 → PSYC 02-13 10:58
PROVIDERS: ADMIT Psychiatry & Neurology Psychiatry; ATTEND Psychiatry & Neurology Psychiatry
DX: F15.14 Other stimulant abuse with stimulant-induced mood disorder (principal); Z21 Asymptomatic human immunodeficiency virus [HIV] infection status; F19.10 Other psychoactive substance abuse, uncomplicated; G47.00 Insomnia, unspecified; J45.909 Unspecified asthma, uncomplicated; F17.210 Nicotine dependence, cigarettes, uncomplicated; Z91.14 Patient's other noncompliance with medication regimen; Z59.0 Homelessness